=== PATIENT | female | born 1975 | race Two or more races ===

== ENCOUNTER 2025-02-13 08:28 | Outpatient (CLI) | payer MEDICAID ==
[~2025-02-13] VITALS: Ht 154.9 cm; Wt 57.2 kg
--- NOTE | 2025-02-13 12:28 | DVHCARD ---
Cardiology Stress Test [place] Treadmill Stress Test [place] Referring MD: MD Cheko Protocol: Steven (with cardiolite) Reason for referral: Other (Murmur) Target heart Rate:@85%: 144 Percent MPHR: 170 METS: 10.10 Resting Heart rate: 63 Resting Blood Pressure: 133/57 Exercise Heart Rate: 157 Exercise Blood Pressure: 139/98 Reason for Termination of Test: Completion of Protocol Baseline EKG: Normal sinus rhythm Stress EKG: Sinus tachycardia without evidence of ST-T wave segment changes Functional Capacity: Good Normal Heart Rate Response: Adequate Blood Pressure Response: Hypertensive Clinical response: Non-ischemic Arrhythmia?: No Cardiolite Injected?: Yes ST-T Changes: Non/Minimal Probability of Inducible Ische: Perfusion result pending Comments: Uneventful treadmill stress test. Date of Service: Feb 13, 2025 Billing Provider: KRISTOFER LAUREN Cardiology Common Codes: PROCEDURE ONLY Treadmill W/Cardiolite Nuclear: [id number], INTERP, RPT KRISTOFER LAUREN Feb 13, 2025 12:28
--- NOTE | 2025-02-14 13:58 | DVHSR ---
APPROVED REPORT Exam: Nuclear Stress Test BMI: 0 Stress Test Details HR Max Heart Rate (APMHR): 170.535727 bpm Target HR (85% APMHR): 144.033416 bpm BP ECG Stress ECG Conclusion lvef 70% normal perfusion scan no ischemia NM EXAM: Myocardial Perfusion REST/STRESS Imaging Protocol: Rest Tc-99m/Stress Tc-99m 1 day Resting Data Rest SPECT myocardial perfusion imaging was performed in supine position 10.3 minutes following the i ntravenous injection of 60 mCi of Tc-99m Sestamibi. Time of rest injection: 09:09 Date: 02/13/2025 Time of rest imagin:09 Date: 02/13/2025 Administration Route: IV Administration Site: Right Arm Exercise Stress At peak stress, the patient was injected intravenously with 27.1mCi of Tc-99m Sestamibi. Time of stress injection: 11:00 Date: 02/13/2025 Time of stress imagin:15 Date: 02/13/2025 Administration Route: IV Administration Site: Right Arm Gated Stress SPECT was performed 15 minutes after stress injection. The images were gated to evaluate regional wall motion and calculate left ventricular ejection fracti on. Stress only was performed in the Supine position. Nuclear Conclusion Nuclear Findings: negative for ischemia lvef 70% normal perfusion scan no ischemia
== END 2025-02-13 17:00 | disposition home or self-care (01) ==
LOC: XYW 08:28
PROVIDERS: ATTEND Internal Medicine
DX: R01.1 Cardiac murmur, unspecified (principal)
CPT/HCPCS: 78452; 93017; A9500